=== PATIENT | male | born 1995 | race Caucasian/White ===

== ENCOUNTER 2020-10-29 21:56 | Emergency (ER) | payer OTHER, SELFPAY ==
[2020-10-29 21:57] VITALS: BP 147/68; PULSE 88; RESP 18; TEMP 35.2; O2SAT 97; BMI 22.8
--- NOTE | 2020-10-29 22:19 | ED.VIS.DENTA ---
HPI History of Present Illness Chief Complaint: Dental Narrative Narrative: Patient had a recent root canal with a temporary filling and he bit the wrong way tonight and started having sharp stabbing pain. He did take antibiotics up until today. He has no fever chills or any worsening swelling. PFSH PFSH Home Medications naproxen 500 mg PO BID #20 tab 10/29/20 [Rx Last Taken Unknown] penicillin V potassium 250 mg PO TID 10/29/20 [History Last Taken Unknown] Allergy/AdvReac Type Severity Reaction Status Date / Time No Known Allergies Allergy Verified 10/29/20 21:58 Social History Smoking Status: Never smoker ROS ROS ED ROS Narrative Past medical history: Reviewed Medications: Reviewed Social history: Noncontributory Review of systems: All systems negative except as indicated General: No fever Eyes: No visual changes ENT: No upper airway congestion, normal voice Dental: Dental pain as in HPI Neck: No neck pain Skin: No rash Neurological: No facial droop EXAM Physical Exam Narrative Exam Narrative: Physical exam General: Patient appears slightly uncomfortable Head: Normocephalic, Atraumatic Eyes: Conjunctiva not pale ENT: Moist mucous membranes Dental: Left upper second molar shows a temporary filling there is no periapical abscess there is slight tenderness to the tooth but otherwise no edema. Neck: Supple, Nontender, No lymphadenopathy Cardiovascular: Regular rate, Regular rhythm Respiratory: No distress, CTA bilaterally Skin: Normal color, No rash Neurological: No facial droop Const Vital Signs: 10/29/20 21:57 Temperature 95.4 F L Temperature Source Temporal Pulse Rate 88 Respiratory Rate 18 Blood Pressure 147/68 H Blood Pressure Mean 94 Pulse Ox 97 Oxygen Delivery Method Room Air MDM MDM MDM Narrative Medical decision making narrative: Patient will be treated with Toradol and Naprosyn for home Discharge Plan Triage Chief Complaint: Dental ED Provider: Cesar Alejandre Dx/Rx/DC Orders Clinical Impression: Odontalgia Instructions: ED Dental Pain Prescriptions: New naproxen 500 MG tablet 500 mg PO BID Qty: 20 RF: 0 No Action penicillin V potassium 250 mg Tablet 250 mg PO TID RF: 0 Primary Care Provider: NOT,DEFINED Referrals: NOT,DEFINED [Primary Care Provider] - Activity Restrictions/Additional Instructions: Follow-up with your dentist as scheduled next Disposition Disposition: Home, self care
[2020-10-29] MEDS: Ketorolac 30 MG/ML Syringe IM (22:26)
[2020-10-29 22:44] VITALS: BP 138/60; PULSE 79; RESP 18
== END 2020-10-29 22:45 | disposition home or self-care (01) ==
LOC: ED 22:39
PROVIDERS: Emergency Provider Emergency Medicine; PCP Physician Assistant
DX: K08.89 Other specified disorders of teeth and supporting structures (principal); Z98.811 Dental restoration status
CPT/HCPCS: 96372; 99282